=== PATIENT | male | born 1930 | race Caucasian/White ===

== ENCOUNTER 2017-11-06 12:38 | Emergency (ER) | payer MEDICARE | END 2017-11-06 16:47 | disposition left against medical advice (07) | LOC: EDH 12:38 | DX: G45.9 Transient cerebral ischemic attack, unspecified (principal); I10 Essential (primary) hypertension; E78.5 Hyperlipidemia, unspecified; E07.9 Disorder of thyroid, unspecified; Z95.0 Presence of cardiac pacemaker; Z98.890 Other specified postprocedural states | CPT/HCPCS: 70450; 93005; 93880 ==